=== PATIENT | male | born 1980 | race Caucasian/White ===

== ENCOUNTER 2023-10-21 11:27 | Outpatient (OUT) | payer BC, SELFPAY ==
--- NOTE | 2023-10-21 11:53 | XR_ITS ---
The [address] [address] Patient Name: CHAYO TRINIDAD MRN: [id number] date: 1980 Sex: M Assigned Patient Location: [facility] Current Patient Location: [facility] Accession/Order Number: [id number] Exam Date: 10/21/2023 12:03 Report Date: 10/21/2023 12:21 At the request of: FLORENCE VENTURA Procedure: XR chest 2V EXAM: XR chest 2V HISTORY: Chronic Cough R05.3 COMPARISON: None. TECHNIQUE: Upright PA and lateral chest x-ray FINDINGS: The heart is not enlarged and the vasculature is not distended. No acute infiltrate, effusion or pneumothorax is identified. The osseous structures are grossly intact. XR/XR chest 2V IMPRESSION: No acute infiltrate or evidence of cardiac decompensation. Direct comparison with a previous study would be helpful in determining the chronicity of these findings. Electronically authenticated by: ATTILA YAN Date: 10/21/2023 12:21
== END 2023-10-21 11:28 | disposition home or self-care (01) ==
PROVIDERS: PCP Family Medicine; Visit Provider Family Medicine
DX: R05.3 Chronic cough (principal)
CPT/HCPCS: 71046